=== PATIENT | male | born 1970 | race Asian ===

== ENCOUNTER 2024-04-06 10:55 | Emergency (ER) | payer OTHER, SELFPAY ==
--- NOTE | ~2024-04-06 | XR_ITS ---
EXAMINATION: XR abdomen/kub 1V DATE: 04/06/2024 13:18 INDICATION: Kidney stone. TECHNIQUE: A supine view of the abdomen on 2 radiographs was obtained. COMPARISON: CT abdomen and pelvis 04/06/2024 FINDINGS: There are no dilated loops of bowel. There are phleboliths in the pelvis. There is a 5 mm s tone in proximal right ureter at L3. IMPRESSION: 1. 5 mm stone in proximal right ureter at L3. Reviewed, dictated and finalized at location A.
--- NOTE | ~2024-04-06 | CT_ITS ---
CT abdomen pelvis wo con Ordering provider: Maty Aguiar PA-C History: 53 years Male with . right abd pain, hematuria . Comparison: None. Technique: CT abdomen and pelvis without IV and without oral contrast. Automated exposure control and iterative reconstruction technique were employed. The dose-length product was 524.70 mGy-cm. Findings: VISUALIZED LOWER CHEST: Dependent atelectatic changes. UPPER ABDOMINAL ORGANS: Liver: Fat infiltration. Gallbladder: Normal. Spleen: Normal. Stomach/duodenum: Normal. Pancreas: Normal. Adrenals: Normal. Kidneys: Tiny stone in the right kidney lower pole. Right perinephric fat stranding with minimal flui d. Hydronephrotic changes seen in the right kidney with a stone in the right upper ureter measuring 7 .3 mm. The left kidney is unremarkable. PELVIC ORGANS: The bladder shows slightly thickened wall. Evaluation for cystitis advised. BOWEL AND MESENTERY: Colon: No evidence of diverticulitis. Normal appendix. Small Bowel: Normal. No obstruction. Peritoneum/mesentery: No free air or free fluid. No mesenteric lymphadenopathy. RETROPERITONEUM: Mild atheromatous disease of the abdominal aorta. No retroperitoneal lymphadenopat hy. MUSCULOSKELETAL: Superficial soft tissues: Small fat-containing left inguinal hernia. Otherwise, The superficial soft tissues are normal. Bones: Age appropriate degenerative changes of the spine. IMPRESSION: 1. Stone in the right upper ureter with right hydronephrotic changes and perinephric stranding. Tiny stone in the right kidney lower pole. 2. Slightly thickened wall of the urinary bladder. Evaluation for cystitis advised. 3. Fat infiltration of the liver. Reviewed, dictated and finalized at location A. IMPRESSION: 1. Stone in the right upper ureter with right hydronephrotic changes and perin ephric stranding. Tiny stone in the right kidney lower pole. 2. Slightly thickened wall of the urinary bladder. Evaluation for cystitis adv ised. 3. Fat infiltration of the liver.
[2024-04-06 10:56] VITALS: BP 151/96; PULSE 78; RESP 16; TEMP 36.6; O2SAT 98
[2024-04-06 11:26] LABS: Basophils Percent Auto 0.4 % (0.2-1.2); Eosinophils Absolute Auto 0.1 K/mm3 (0-0.3); Eosinophils Percent Auto 1.1 % (0-4.4); Hematocrit 48.1 % (42.0-52.0); Hemoglobin 15.6 g/dL (14.0-18.0); Immature Granulocyte Absolute 0.02 K/mm3 (0.00-0.031); Immature Granulocyte Percent A 0.2 % (0-0.5); Lymphocytes Absolute Auto 1.43 K/mm3 (0.9-3.2); Lymphocytes Percent Auto 14.4 % (18.3-44.2); Mean Corpuscular HGB Conc 32.4 g/dl (32-36); Mean Corpuscular Hemoglobin 30.4 pg (26-34); Mean Corpuscular Volume 93.8 fl (80-100); Mean Platelet Volume 10.1 fl (7.4-10.4); Monocytes Absolute Auto 0.6 K/mm3 (0.1-0.6); Monocytes Percent Auto 5.7 % (2.6-8.5); Neutrophils Absolute Auto 7.8 K/mm3 (1.3-6.7); Neutrophils Percent Auto 78.2 % (45.5-73.1); Platelet Count Result 200 k/mm3 (150-375); Red Blood Count 5.13 M/mm3 (4.6-6.20); Red Cell Distribution Width 13.9 % (11.5-14.5); White Blood Count 9.9 K/mm3 (4.5-10.0)
[2024-04-06 11:34] LABS: Alanine Aminotransferase 51 U/L (6-50); Albumin Level 5.1 g/dL (3.5-5.1); Alkaline Phosphatase 80 U/L (38-126); Anion Gap 12 mmol/L (4-12); Aspartate Amino Transferase 43 U/L (17-59); Bilirubin,Total 0.9 mg/dL (0.2-1.3); Blood Urea Nitrogen 13 mg/dL (9-20); Calcium 9.1 mg/dL (8.4-10.2); Carbon Dioxide 23 mmol/L (22-30); Chloride 105 mmol/L (98-107); Estimated CRCL calculation 70 ml/min; Estimated Glomerular Filt Rate > 60; Glucose 130 mg/dL (65-110); Lipase 96 U/L (23-300); Potassium 4.3 mmol/L (3.4-5.0); Sodium 140 mmol/L (137-145)
--- NOTE | 2024-04-06 11:34 | ED.ABDPAIN ---
HPI - Abdominal Pain General Chief Complaint: Abdominal Pain Stated Complaint: ABD PAIN XTD Time Seen by Provider: 04/06/24 11:09 Source: patient Mode of arrival: ambulatory Limitations: no limitations History of Present Illness HPI narrative: This is a 53-year-old male that presents to the emergency department for right-sided abdominal pain. Ongoing over the last several hours. Reports some associated hematuria and dysuria. Denies fever, vomiting. Related Data Allergies Allergy/AdvReac Type Severity Reaction Status Date / Time No Known Allergies Allergy Verified 04/06/24 10:57 Review of Systems Review of Systems: CONSTITUTIONAL: Denies fever GASTROINTESTINAL: Reports abdominal pain. Denies nausea, vomiting, or diarrhea. GENITOURINARY: Reports dysuria and hematuria. All systems reviewed & are unremarkable except as noted in HPI and below PMFSH Past Medical History Medical History (Updated 04/06/24 @ 14:28 by Maty Aguiar PA-C) History of hyperlipidemia History of hypertension Social History Social History (Updated 04/06/24 @ 14:28 by Maty Aguiar PA-C) Smoking status: Never smoker Exam Narrative: GENERAL: Well-appearing, well-nourished, and in no acute distress. HEAD: Normocephalic, atraumatic. EYES: EOMI. CHEST: Clear to auscultation. No respiratory distress. No wheezes rales or rhonchi HEART: Regular rate and rhythm. No murmur heard. Normal peripheral pulses. ABDOMEN: Soft, nontender, nondistended, normal active bowel sounds. No CVA tenderness EXTREMITIES: Normal range of motion. No edema. SKIN: Warm, dry, no rash. NEURO: No focal deficits. Alert and oriented x3. PSYCH: Normal mood and affect Course Course Emergency Course: Patient updated. He prefers to follow up with someone in his network at [facility] Consultation #1: Patient evaluated by Urology for possible Lithotripsy being scheduled outpatient. Unfortunately patient's insurance is not in their network, so he would have to pay out of pocket Date: 04/06/24 Vital Signs Vital signs: Vital Signs Temperature 98 F 04/06/24 10:56 Pulse Rate 78 04/06/24 10:56 Respiratory Rate 16 04/06/24 10:56 Blood Pressure 151/96 H 04/06/24 10:56 Pulse Oximetry 98 04/06/24 10:56 Oxygen Delivery Room Air 04/06/24 10:56 Temperature 98 F 04/06/24 10:56 Pulse Rate 76 04/06/24 13:08 Respiratory Rate 2 L 04/06/24 13:08 Blood Pressure 98/61 L 04/06/24 13:08 Pulse Oximetry 97 04/06/24 13:08 Oxygen Delivery Room Air 04/06/24 10:56 MDM - Abdominal Pain MDM Narrative Medical decision making narrative: patient presents to the emergency department for right-sided abdominal pain with associated hematuria. He is afebrile and nontoxic appearing. His vitals are stable. Cbc without leukocytosis. Metabolic panel with normal kidney function. UA with greater than [address] abdomen pelvis shows a large stone in the right proximal ureter. KUB identifies the stone. Patient evaluated by Urology for possible Lithotripsy being scheduled outpatient. Unfortunately patient's insurance is not in their network, so he would have to pay out of pocket. Patient updated. He prefers to follow up with someone in his network at [facility]. He was given warnings to return to the ER Differential Diagnosis Differential diagnosis: Likely acute appendicitis, calculus of kidney and other (UTI) Lab Data Attestation: I reviewed the patient's lab results. 04/06/24 11:17 04/06/24 11:17 Labs: Lab Results 04/06/24 Range/Units 11:17 WBC 9.9 (4.5-10.0) K/mm3 RBC 5.13 (4.6-6.20) M/mm3 Hgb 15.6 (14.0-18.0) g/dL Hct 48.1 (42.0-52.0) % MCV 93.8 (80-100) fl MCH 30.4 (26-34) pg MCHC 32.4 (32-36) g/dl RDW 13.9 (11.5-14.5) % Plt Count 200 (150-375) k/mm3 MPV 10.1 (7.4-10.4) fl Immature Gran % (Auto) 0.2 (0-0.5) % Neut % (Auto) 78.2 H (45.5-73.1) % Lymph %
[2024-04-06 11:40] LABS: Appearance Urine Cloudy (Clear); Bacteria Urine None Seen /hpf; Bilirubin Urine Negative (Negative); Blood Urine 3+ (Negative); Color Urine Yellow (Yellow); Glucose Urine UA Negative (Negative); Ketones Urine Negative (Negative); Leukocyte Esterase Ur Negative LEU/UL (Negative); Need Manual Microscopic Reviewed; Nitrate Urine Negative (Negative); Non Pathogenic Casts 0-2; Protein Urine 1+ mg/dL (Negative); RBC Urine >100 /hpf (0-2); Squamous Epithelial Cell Urine None Seen /hpf (Few); Uric Acid Crystals Urine Present /hpf; Urobilinogen Urine 0.2 mg/dL (<2.0); WBC Urine 0-5 /hpf (0-3)
[2024-04-06 11:41] LABS: Add Urine Microscopic? YES
[2024-04-06] MEDS: ONDANSETRON INJ 4 MG/2 ML VIAL IV PUSH (12:01)
[2024-04-06] MEDS: MORPHINE SULFATE (*CRX) 4 MG/ML INJ IV PUSH (12:01)
[2024-04-06 12:04] VITALS: BP 150/99; PULSE 70; RESP 16; O2SAT 100
[2024-04-06 13:08] VITALS: BP 98/61; PULSE 76; RESP 20; O2SAT 97
--- NOTE | 2024-04-06 13:19 | WPDURCON ---
Assessment and Plan Assessment and plan (1) Right ureteral stone: Code(s): N20.1 - Calculus of ureter Status: Acute Assessment and Plan: 15 mm proximal right ureteral stone. Discussed options for management including right ureteral stent placement today with outpatient ESWL. Because his pain is well controlled and no signs of infection, he has opted for outpatient management. He will follow-up with [facility] which is in network with his insurance. Instructed to seek care if worsening pain, urinary symptoms, fever, chills. Understands need for prompt outpatient follow-up (2) Hydronephrosis, right: Code(s): N13.30 - Unspecified hydronephrosis Status: Acute Assessment and Plan: Plan as above. Discussed that would likely need right ESWL with stent placement given size of stone Urology Consult Note HPI Date Seen: 04/06/24 Primary Care Provider: Jerry Henry, Consult Narrative Narrative: Jonathan Mayfield is a 53 year old male with a history of prior kidney stones that have passed spontaneously as well as hypertension who is being seen in consultation for evaluation of proximal right ureter stone. He had sudden onset of right flank pain this morning. He presented to the ER for further evaluation. On arrival, his vital signs were stable and he was afebrile. WBC 9.9, creatinine 1.1, UA with 3+ blood and uric acid crystals, no leukocytes or nitrites. A CT of his abdomen/pelvis was completed which showed a 15 mm proximal right ureteral stone with mild right hydronephrosis as well as a tiny nonobstructing right renal stone. His pain has been well controlled and he denies nausea, vomiting, fever, chills, dysuria, or hematuria. Review of Systems Review of Systems: All systems reviewed & are unremarkable except as noted in HPI and below PMFSH Past Medical History Medical History (Updated 04/06/24 @ 14:39 by Brigitte Velasco PA-C) History of hyperlipidemia History of hypertension Social History Social History (Updated 04/06/24 @ 14:28 by Maty Aguiar PA-C) Smoking status: Never smoker Meds Home Medications and Allergies Home Medications Medication Instructions Recorded Confirmed Type hydrocodone 5 mg-acetaminophen 325 1 tablet PO Q6H PRN pain #20 tabs 04/06/24 Rx mg tablet Allergies Allergy/AdvReac Type Severity Reaction Status Date / Time No Known Allergies Allergy Verified 04/06/24 10:57 Vital Signs Vital Signs - 24 hr 04/06/24 10:56 04/06/24 12:04 04/06/24 13:08 Temperature 98 F Pulse Rate 78 70 76 Respiratory Rate 16 16 2 L Blood Pressure 151/96 H 150/99 H 98/61 L Pulse Oximetry 98 100 97 Oxygen Delivery Room Air Exam Narrative: General: Awake, alert, comfortable, no acute distress HEENT: Normocephalic, atraumatic, sclerae anicteric Respiratory: Normal respiratory effort, no accessory muscle use Abdomen: Nondistended, soft, nontender Skin: Normal coloration, warm and dry Neurologic: No focal neuro deficits noted Psychiatric: Appropriate mood and affect, judgment and insight intact Results Labs 04/06/24 11:17 04/06/24 11:17 Labs: Short CBC 04/06/24 Range/Units 11:17 WBC 9.9 (4.5-10.0) K/mm3 Hgb 15.6 (14.0-18.0) g/dL Hct 48.1 (42.0-52.0) % Plt Count 200 (150-375) k/mm3 BMP 04/06/24 11:17 Sodium 140 Potassium 4.3 Chloride 105 Carbon Dioxide 23 BUN 13 Creatinine 1.10 Glucose 130 H Calcium 9.1 Liver Function 04/06/24 Range/Units 11:17 Total Bilirubin 0.9 (0.2-1.3) mg/dL AST 43 (17-59) U/L ALT 51 H (6-50) U/L Alkaline Phosphatase 80 (38-126) U/L Albumin 5.1 (3.5-5.1) g/dL Urine 04/06/24 Range/Units 11:17 Urine Color Yellow (Yellow) Urine Appearance Cloudy H (Clear) Urine pH 5.0 (5.0-9.0) Ur Specific [place] 1.020 (1.001-1.035) Urine Protein 1+ H (Negative) mg/dL Urine Glucose (UA) Negat
== END 2024-04-06 14:44 | disposition home or self-care (01) ==
PROVIDERS: Emergency Medicine; Emergency Provider Physician Assistant; PCP Internal Medicine
DX: N13.2 Hydronephrosis with renal and ureteral calculous obstruction (principal); E78.5 Hyperlipidemia, unspecified; I10 Essential (primary) hypertension
CPT/HCPCS: 36415; 74018; 74176; 80053; 81001; 83690; 85025; 96374; 96375; 99284; J2270; J2405